=== PATIENT | male | born 1955 | race Caucasian/White ===

== ENCOUNTER → 2023-12-05 07:41 | Outpatient (REF) | payer MEDICARE, OTHER, SELFPAY | LOC: RAD 07:41 | PROVIDERS: ATTENDING PHYSICIAN Internal Medicine | DX: E78.00 Pure hypercholesterolemia, unspecified (principal) | CPT/HCPCS: 75571 ==

== ENCOUNTER → 2023-12-25 11:12 | Outpatient (REF) | payer MEDICARE, OTHER, SELFPAY | LOC: DHCBC/DCA 11:12 | PROVIDERS: ATTENDING PHYSICIAN Internal Medicine Cardiovascular Disease; FAMILY PHYSICIAN Internal Medicine | DX: R93.1 Abnormal findings on diagnostic imaging of heart and coronary circulation (principal); E78.2 Mixed hyperlipidemia; R06.09 Other forms of dyspnea | CPT/HCPCS: 78452; 93017; A9500 ==

== ENCOUNTER → 2024-01-09 07:09 | Outpatient (REF) | payer MEDICARE, OTHER, SELFPAY | LOC: HWRCS 07:09 | PROVIDERS: ATTENDING PHYSICIAN Internal Medicine Cardiovascular Disease; FAMILY PHYSICIAN Internal Medicine | DX: E78.2 Mixed hyperlipidemia (principal) | CPT/HCPCS: 93306 ==

== ENCOUNTER → 2024-09-10 15:45 | Outpatient (REF) | payer MEDICARE, OTHER, SELFPAY | LOC: RAD 15:45 | PROVIDERS: ATTENDING PHYSICIAN Nurse Practitioner Adult Health | DX: M79.672 Pain in left foot (principal) | CPT/HCPCS: 73630 ==

== ENCOUNTER 2024-11-19 16:23 | Emergency (ER) | payer MEDICARE, OTHER, SELFPAY ==
[2024-11-19 16:26] VITALS: BP 174/98
[2024-11-19 19:23] VITALS: BMI 34.7
--- NOTE | 2024-11-19 19:27 | ED.GENMED ---
History of Present Illness
General
Chief Complaint: Visual Problem
Source: patient
Exam Limitations: none
Time Seen by Provider: 11/19/24 19:13
History of Present Illness
History of Present Illness:
68-year-old male complaining of double vision x 1 week. Only has double vision mostly with looking downward. No other neurologic symptoms no speech issues gait issues numbness tingling or weakness. Occasionally gets a very brief sharp pain to the
right posterior parietal area last episode of this was a month ago. Has some mild eye pain with this. Seen by ophthalmology who was concerned about a 4th cranial nerve palsy
Past History
Past History
ED Past Medical History: Hypercholesterolemia
ED Past Surgical History: Orthopedic and Other (Hernia repair)
Review of Systems
Review of Systems
All Other Systems: Not applicable
Cardiac: Reports no symptoms
Neurological: Denies dizzy, weakness or numbness
Phy Exam
Physical Exam
Physical Exam:
GENERAL: Alert and oriented in no apparent distress
EYE: Slight double vision with downward gaze. Extraocular muscles intact otherwise.
NECK: Supple, no carotid bruit
ENT: Pharynx without erythema
CARDIAC: Regular rate and rhythm without any obvious murmurs.
LUNGS: Clear breath sounds,normal
ABDOMEN: Soft, without focal tenderness or distention
NEUROLOGICAL: Alert and oriented , speech normal. Gait normal. Cranial nerves II through XII intact except for right 4th nerve palsy. [id number] normal.
SKIN: Warm and dry, no rash or lesion, no discoloration, skin intact.
MUSCULOSKELETAL: No edema,no deformity.Good color
PSYCH: Normal and appropriate interaction. Slightly dilated pupils bilaterally.
Course
Vital Signs
Initial and Last Documented VS:
Initial Vital Signs
Temp Pulse Resp BP Pulse Ox
98.3 F 79 16 174/98 97
11/19/24 16:26 11/19/24 16:26 11/19/24 16:26 11/19/24 16:26 11/19/24 16:26
Last Documented Vital Signs
Temp Pulse Resp BP Pulse Ox
98.3 F 70 16 174/98 96
11/19/24 16:26 11/19/24 19:33 11/19/24 16:26 11/19/24 16:26 11/19/24 19:33
*Pulse Oximetry
Patient hypoxic: no (97%)
*Critical Care Note
Total Time (30-74mins, 75-104mins- exclusive of procedures): Not Applicable
Update Note
Update Note:
Discussed testing with neurology. We are in agreement CT angiography head and neck would rule out any serious or life-threatening issue. Then could start a baby aspirin and follow-up MRI as an outpatient. This was discussed at length with the
patient. However after discussing timing patient does not want to wait for the CT angiography. He is very impatient to go home. Feel risk of leaving and delaying diagnosis were explained including life-threatening ruptured aneurysm stroke
etc. He is fully aware of this risk and states he will come back in the morning for the testing
ED Attending Note
-
Portions of this chart may have been created with voice recognition software.� Occasional wrong word or��sound alike� substitutions may have occurred due to the inherent limitations of voice recognition software.
Discharge Plan
Departure
Patient Disposition: Home (Routine Discharge)
Date of Disposition: 11/19/24
Time of Disposition: 19:42
Patient with high blood pressure during this ER visit?: Yes
Discharge Problem:
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
Instructions: Double Vision (DC), BLOOD PRESSURE
Prescriptions:
No Action
meloxicam 15 mg Tablet
15 mg PO DAILY
pravastatin 80 mg Tablet
80 mg PO DAILY
tramadol 100 mg Tablet
50 mg PO Q12H PRN (Reason: pain)
albuterol 90 mcg/actuation Aerosol
2 mcg INHALATION Q6H PRN (Reason: SOB)
Referrals:
Alanna Snider CRNP [Family Provider, Internal Medicine]
Activity Restrictions/Additional Instructions:
As we discussed, return tomorrow morning for CT angiography head and neck.
If you change your mind about testing you will of course welcome to come back sooner.
Also return immediately with any new neurologic symptoms severe headache etc.
Interventions
Interventions:
*Risk Screen - Suicide Last Done: 11/19/24 16:28
*General Assessment Last Done: 11/19/24 19:23
*Neglect/Abuse Screening Last Done: 11/19/24 16:28
*ED- Fall Risk Assessment Last Done: 11/19/24 19:23
*ED COVID-19 Vaccine History Last Done: 11/19/24 19:23
ED- Neurological Assessment Last Done: 11/19/24 19:23
ED-EENT Assessment Last Done: 11/19/24 19:23
Discharge Date and Time
Print Language: AFGHAN
== END 2024-11-19 19:55 | disposition home or self-care (01) ==
LOC: EMR 16:23
PROVIDERS: EMERGENCY PHYSICIAN Emergency Medicine; FAMILY PHYSICIAN Nurse Practitioner Adult Health
DX: H49.10 Fourth [trochlear] nerve palsy, unspecified eye (principal); E78.00 Pure hypercholesterolemia, unspecified
CPT/HCPCS: 99282

== ENCOUNTER 2024-11-20 09:06 | Emergency (ER) | payer MEDICARE, OTHER, SELFPAY ==
[2024-11-20] VITALS (7 sets, daily range): BP systolic 141–185; BP diastolic 90–98; BMI 32.1
--- NOTE | 2024-11-20 09:43 | ED.GENMED ---
History of Present Illness
General
Chief Complaint: Visual Problem
Source: patient
Exam Limitations: none
Time Seen by Provider: 11/20/24 09:25
Nursing documentation reviewed up to this point in time: agreed with
History of Present Illness
History of Present Illness:
Patient presents to ED secondary to persistent double vision, when he is looking downward over the past 1 week. Patient was evaluated by his pss delivery professional, Dr. Gonzalez, yesterday and was referred to ED for an evaluation. During the course of
evaluation ED last night, on-call neurologist had recommended obtaining CT angiogram head and neck. However, as patient has fear of needles, he opted to leave the ED without getting the study. Upon waking up this morning, he felt as though he
should receive the recommended study, so he presents to ED for recommended CT angiogram. Denies any other symptoms. Denies loss of sensation or weakness. Denies difficulty with speech or swallowing. Denies recent illness. Denies recent change
in medications or diet. Denies previous history of similar symptoms. Patient also does endorse intermittent pressure pain over his right eyelid, as well as intermittent sharp pain on the right side of his head over the past 3 months.
Past History
Past History
ED Past Medical History: Hypercholesterolemia
ED Past Surgical History: Orthopedic and Other (Hernia repair)
Review of Systems
Review of Systems
Allergies reviewed?: Yes
All Other Systems: ROS reviewed and negative except as documented in HPI and ROS
Constitutional: Reports no symptoms
Musculoskeletal: Reports no symptoms
Skin: Reports no symptoms
Neurological: Reports other (Double vision)
Phy Exam
Physical Exam
Physical Exam:
Physical Exam
General: no apparent distress, not acutely ill. afebrile
Head: nc/at. eomi. perrla. no nystagmus.
Neck: supple. normal range of motion. no carotid bruit
Heart: s1/s2 regular rate and rhythm
Lungs: no acute respiratory distress.
Abdomen: normal bowel sounds. not tender.
Neuro: alert and oriented x 3. no focal sensory/motor deficit. normal speech. when looking downwards, reports object stacked on top of each other
Skin: no rash
Psychiatric: well kept. interactive and cooperative
Extremities: no edema. no calf tenderness.
Course
Orders/Labs/Results
Orders:
Orders
11/20/24 10:04
NEUROLOGY CONSULT Urgent
Consulting Provider: Alex Myles
Was physician already notified: Yes
Reason for consult: double vision
11/20/24 10:31
Aspirin Chewable [Low Strength Aspirin] 324 mg PO NOW STA
Clopidogrel Bisulfate [Plavix] 300 mg PO NOW STA
Vital Signs
Initial and Last Documented VS:
Initial Vital Signs
Temp Pulse Resp BP Pulse Ox
98.4 F 73 22 170/92 97
11/20/24 09:08 11/20/24 09:08 11/20/24 09:08 11/20/24 09:08 11/20/24 09:08
Last Documented Vital Signs
Temp Pulse Resp BP Pulse Ox
98.7 F 66 20 141/98 97
11/20/24 09:55 11/20/24 11:14 11/20/24 11:14 11/20/24 11:14 11/20/24 11:14
MDM/Problems Addressed
MDM/Problems Addressed:
Patient evaluated in ED by neurology, , who feels that patient may have had subtle midbrain stroke. Recommends starting patient on dual antiplatelet therapy, i.e. aspirin/Plavix. Further workup, including MRI, MRA, carotid ultrasound, to be
done as outpatient, which patient prefers. As patient had some questionable wheezing with previous aspirin administration, patient will be loaded with aspirin and Plavix in ED and observed for next 1 hour to ensure that patient does not exhibit any
allergic reaction. Afterwards, patient will be discharged home, where he will contact his primary care physician for an urgent outpatient workup.
Discussed with pmd, , via [employer]
*Critical Care Note
Total Time (30-74mins, 75-104mins- exclusive of procedures): Not Applicable
ED Attending Note
-
Portions of this chart may have been created with voice recognition software.� Occasional wrong word or��sound alike� substitutions may have occurred due to the inherent limitations of voice recognition software.
Discharge Plan
Departure
Patient Disposition: Home (Routine Discharge)
Date of Disposition: 11/20/24
Time of Disposition: 11:47
Patient with high blood pressure during this ER visit?: Yes
Discharge Problem:
Acute CVA (cerebrovascular accident)
Instructions: Stroke - Discharge instructions
Prescriptions:
New
clopidogrel [Plavix] 75 mg tablet
75 mg PO DAILY Qty: 30 0RF
No Action
meloxicam 15 mg Tablet
15 mg PO DAILY
tramadol 100 mg Tablet
50 mg PO Q12H PRN (Reason: pain)
Referrals:
Lily Soni MD [Family Provider, Internal Medicine]
Activity Restrictions/Additional Instructions:
As discussed, please follow-up with your primary care physician for further evaluation and treatment. In the meantime, please continue to take 81 mg aspirin daily along with prescribed Plavix, as well as cholesterol-lowering agent, which you are
taking already.
Interventions
Interventions:
*Risk Screen - Suicide Last Done: 11/20/24 09:08
*General Assessment Last Done: 11/20/24 09:08
*Neglect/Abuse Screening Last Done: 11/20/24 09:08
*ED- Fall Risk Assessment Last Done: 11/20/24 09:55
*ED COVID-19 Vaccine History Last Done: 11/20/24 09:55
*Nursing Disposition Last Done: 11/20/24 12:01
ED- Neurological Assessment Last Done: 11/20/24 09:55
ED-EENT Assessment Last Done: 11/20/24 09:55
ED Swallowing Screen Last Done: 11/20/24 09:55
Discharge Date and Time
Discharge Date/Time: 11/20/24 12:02
Print Language: CHINESE
--- NOTE | 2024-11-20 10:30 | CON.NEURO ---
Neuro Assessment/Plan
Assessment
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
posterior circulation, not possible to be symptomatic carotid
load 324 and Plavix 300 - wheezing with aspirin in youth but believes he tolerated it more recently
ideally continue DAPT 21 days then monotherapy
continue rosuvastatin
he doesn't want a needle and doesn't want to stay the night so we discussed that the full workup would include MRI brain to rule out tumor, MRA head, carotid ultrasound, holter, echo, bloodwork, all of which is optional and unlikely to change the
management; the stroke probably too small to see, he will follow with PCP and Cardiology. spoke with his PCP Dr Soni
His headache SUNCT - discussed starting Lamictal preventative, he says not frequent enough to warrant
Consultation
Order
Date of Consultation: 11/20/24
Requesting Provider: Martin Hernandez
Reason for Consult: 4th nerve palsy
Subjective/Objective
Subjective Data
Date of Service: November 20, 2024
from ED notes:
Patient presents to ED secondary to persistent double vision, when he is looking downward over the past 1 week. Patient was evaluated by his publication editor, Dr. Gonzalez, yesterday and was referred to ED for an evaluation. During the course of
evaluation ED last night, on-call neurologist had recommended obtaining CT angiogram head and neck. However, as patient has fear of needles, he opted to leave the ED without getting the study. Upon waking up this morning, he felt as though he
should receive the recommended study, so he presents to ED for recommended CT angiogram. Denies any other symptoms. Denies loss of sensation or weakness. Denies difficulty with speech or swallowing. Denies recent illness. Denies recent change
in medications or diet. Denies previous history of similar symptoms. Patient also does endorse intermittent pressure pain over his right eyelid, as well as intermittent sharp pain on the right side of his head over the past 3 months.
past year episodes of stabbing pain small area of right scalp ~15 seconds 1-2/month severe/debilitating. brief episodes and severe meaning he has not noticed if any other symptoms such as conjunctivitis or tearing
Objective Data
Vital Signs
Temp Pulse Resp BP Pulse Ox
37.1 C 69 25 164/97 97
11/20/24 09:55 11/20/24 09:55 11/20/24 09:55 11/20/24 09:55 11/20/24 09:55
Patient Allergies
aspirin Allergy (Verified 11/20/24 09:08)
Shortness of Breath
Physical Exam
-
AAOx3, speech clear, language intact
VFF, right 4th nerve palsy, face symmetric
trace left sided weakness
left sided decrease pin, intact vibration
DTR 1+ symmetric
FNF intact
Medications
-
Home Medications
�Medication �Instructions �Recorded
meloxicam 15 mg tablet 15 mg PO DAILY 05/31/23
tramadol 100 mg tablet 50 mg PO Q12H PRN pain 05/31/23
[2024-11-20] MEDS: LOW STRENGTH ASPIRIN 324 MG PO (10:49)
[2024-11-20] MEDS: PLAVIX 300 MG PO (10:49)
== END 2024-11-20 12:02 | disposition home or self-care (01) ==
LOC: EMR 09:06
PROVIDERS: CONSULT PHYSICIAN Psychiatry & Neurology Clinical Neurophysiology; EMERGENCY PHYSICIAN Emergency Medicine; FAMILY PHYSICIAN Internal Medicine
DX: I63.9 Cerebral infarction, unspecified (principal); E78.00 Pure hypercholesterolemia, unspecified
CPT/HCPCS: 99283

== ENCOUNTER → 2024-11-26 11:55 | Outpatient (REF) | payer MEDICARE, OTHER, SELFPAY | LOC: MRI 11:55 | PROVIDERS: ATTENDING PHYSICIAN Internal Medicine | DX: E78.00 Pure hypercholesterolemia, unspecified (principal); I63.89 Other cerebral infarction | CPT/HCPCS: 70544; 70551 ==

== ENCOUNTER → 2024-11-30 06:23 | Outpatient (REF) | payer MEDICARE, OTHER, SELFPAY | LOC: RAD 06:23 | PROVIDERS: ATTENDING PHYSICIAN Internal Medicine | DX: I63.9 Cerebral infarction, unspecified (principal); I63.231 Cerebral infarction due to unspecified occlusion or stenosis of right carotid arteries; H53.8 Other visual disturbances; I63.89 Other cerebral infarction | CPT/HCPCS: 93880 ==